=== PATIENT | female | born 1940 | race Caucasian/White ===

== ENCOUNTER 2016-07-03 18:23 | Emergency (ER) | payer OTHER | END 2016-07-03 21:15 | disposition home or self-care (01) | LOC: ER 18:23 | DX: S60.212A Contusion of left wrist, initial encounter (principal); E11.9 Type 2 diabetes mellitus without complications; I10 Essential (primary) hypertension; Z79.84 Long term (current) use of oral hypoglycemic drugs; Z90.49 Acquired absence of other specified parts of digestive tract; Z90.710 Acquired absence of both cervix and uterus; Z79.899 Other long term (current) drug therapy; Z88.0 Allergy status to penicillin; W10.9XXA Fall (on) (from) unspecified stairs and steps, initial encounter ==

== ENCOUNTER 2016-08-07 07:48 | Emergency (ER) | payer OTHER | END 2016-08-07 11:00 | disposition home or self-care (01) | LOC: ER 07:48 | DX: K52.9 Noninfective gastroenteritis and colitis, unspecified (principal); E11.9 Type 2 diabetes mellitus without complications; I10 Essential (primary) hypertension; Z90.710 Acquired absence of both cervix and uterus; Z90.49 Acquired absence of other specified parts of digestive tract; Z88.0 Allergy status to penicillin; Z79.84 Long term (current) use of oral hypoglycemic drugs; Z79.899 Other long term (current) drug therapy | CPT/HCPCS: 36415; 72072 ==